=== PATIENT | female | born 1970 | race Hispanic/Latino ===

== ENCOUNTER 2024-03-18 11:02 | Emergency (ER) | payer OTHER ==
[~2024-03-18] VITALS: Ht 165.1 cm; Wt 77.1 kg
[2024-03-18 11:57] VITALS: PULSE 76; RESP 18; TEMP 98
[2024-03-18] MEDS: KETOROLAC TROMETHAMINE 60 MG/2 ML VIAL IM ONE (12:11)
[2024-03-18 12:32] LABS: CORONAVIRUS COVID-19 AG NEGATIVE (NEGATIVE); INFLUENZA A AG NEGATIVE (NEGATIVE); INFLUENZA B AG NEGATIVE (NEGATIVE)
[2024-03-18 13:47] VITALS: BP 100/88; PULSE 80; RESP 14; O2SAT 100
== END 2024-03-18 13:42 | disposition home or self-care (01) ==
LOC: ER 11:39
DX: R05.9 Cough, unspecified (principal); B34.9 Viral infection, unspecified; Z11.52 Encounter for screening for COVID-19
CPT/HCPCS: 71046; 87428; 99282; J1885